=== PATIENT | male | born 1995 ===

== ENCOUNTER 2020-11-10 20:08 | Emergency (ER) | payer OTHER, SELFPAY ==
[~2020-11-10] VITALS: Ht 180.3 cm; Wt 73.0 kg
--- NOTE | 2020-11-11 14:03 | EKG ---
[facility] [address] [facility] [place], [place] [address] Signed Normal sinus rhythm Normal ECG No previous ECGs available Confirmed by IAN GOMES MD ([id number]) on 11/11/2020 2:03:45 PM Electronically Signed By: IAN GOMES MD 11/11/20 1403 PATIENT NAME: LORI WHEELER Electrocardiogram DATE OF : [birth year] PHYSICIAN: IAN GOMES MD REPORT #: [id number] REPORT IS CONFIDENTIAL AND NOT TO BE RELEASED WITHOUT AUTHORIZATION
== END 2020-11-10 22:05 | disposition home or self-care (01) ==
LOC: ED 20:08
DX: R55 Syncope and collapse (principal); F17.200 Nicotine dependence, unspecified, uncomplicated
CPT/HCPCS: 80053; 85025; 93005; 93010; 99284-25; J7030